=== PATIENT | male | born 1965 | race Caucasian/White ===

== ENCOUNTER 2017-08-14 13:33 | Observation (INO) | payer BC ==
[2017-08-14] VITALS (7 sets, daily range): BP systolic 97–146; BP diastolic 56–87; PULSE 50–60; RESP 15–20; TEMP 97.4–98.5; O2SAT 96–99
[~2017-08-14] VITALS: Ht 172.7 cm; Wt 65.0 kg
[~2017-08-14 13:33] MED LIST: ASPI81 PO; ATOR80TA41 PO; DEXTLIQ PO; LISI5 PO; METO25 PO; TICA90 PO; TRAM50TA PO; VITA-83 PO; ZITH250T PO
--- NOTE | 2017-08-14 13:44 | PD ---
Physical Exam Time Seen by Provider: 13:43 Narrative 51-year-old male presents to emergency room complaining of intermittent left- sided chest pain that started today. Describes as a pressure. Denies shortness of breath. History of stent placement one year ago. Patient seen in triage. Vital signs reviewed. Patient awaiting bed placement. Data Data Last Documented VS Vital Signs Date Time Temp Pulse Resp B/P (MAP) Pulse Ox O2 Delivery O2 Flow Rate FiO2 08/14/17 13:35 98.5 60 15 138/87 (104) 97 MDM Supervised Visit with LING: Margi Wild Aug 14, 2017 13:44
[2017-08-14] MEDS ORDERED: SODIUM CHLORIDE 0.9% FLUSH 10 ML FLUSH IVF PRN (13:45)
--- NOTE | 2017-08-14 14:29 | PD ---
HPI Chief Complaint: Chest Pain Time Seen by Provider: 14:10 Travel History International Travel<30 days: No Contact w/Intl Traveler<30days: No Traveled to known affect area: No History of Present Illness HPI 51-year-old male with PMH of CAD, status post stenting by Dr. Brasher in 2014 presents to the ED for evaluation of 3 day history of intermittent left sided and epigastric chest pain. Described as pressure. Patient states that the first episode woke him from sleep a few nights ago. He states that he had a few episodes while he was surfing today which caused him to come out of the water, have his vitals taken by a infrastructure security architect. He states they were normal at that time. States that he went home and was talking to his and had a similar episode that prompted him to seek treatment in the ED. He states that the episodes last a few minutes before resolving spontaneously. He denies associated palpitations, shortness of breath, nausea, vomiting, diaphoresis. He takes an aspirin daily. He denies cigarette smoking. Occasional drinker. Endorses smoking marijuana. He is followed by Dr. Alfredo Serrano, cardiology. [facility] Past Medical History Heart Rhythm Problems: No Cancer: No Cardiac Catheterization: Yes (SEP 2015) Cardiovascular Problems: Yes (HEART CATH IN 2014) High Cholesterol: Yes (PT STATES HE THINK HE DOES CURRENTLY ) Chest Pain: Yes Congestive Heart Failure: No Coronary Artery Disease: Yes Diabetes: No Diminished Hearing: No Endocrine: No Genitourinary: No Immune Disorder: No Musculoskeletal: No Neurologic: No Psychiatric: No Reproductive: No Respiratory: No Immunizations Current: Yes Tetanus Vaccination: < 5 Years Influenza Vaccination: No Past Surgical History Appendectomy: Yes ( A CHILD) Coronary Artery Bypass Graft: No Coronary Stent: Yes Other Surgery: No Social History Alcohol Use: No Tobacco Use: No Substance [facility]: Yes [facility] Allergies-Medications (Allergen,Severity, Reaction): Coded Allergies: No Known Allergies (Verified , 08/14/17) Reported Meds & Prescriptions Reported Meds & Active Scripts Active Reported Aspirin EC (Aspirin) 81 Mg Tabdr 81 Mg PO DAILY Atorvastatin (Atorvastatin Calcium) 80 Mg Tab 80 Mg PO HS Metoprolol Tartrate 25 Mg Tab 25 Mg PO BID Review of Systems Except as stated in HPI: all other systems reviewed are Neg Physical Exam Narrative GENERAL: Well-nourished, well-developed thin white male in no acute distress. SKIN: Focused skin assessment warm/dry. HEAD: Normocephalic. EYES: No scleral icterus. No injection or drainage. NECK: Supple, trachea midline. No JVD or lymphadenopathy. CARDIOVASCULAR: Regular rate and rhythm without murmurs, gallops, or rubs. No tenderness to palpation over the precordium. RESPIRATORY: Breath sounds clear and equal bilaterally. No accessory muscle use. GASTROINTESTINAL: Abdomen soft, non-tender, nondistended. MUSCULOSKELETAL: No cyanosis, or edema. BACK: Nontender without obvious deformity. No CVA tenderness. Data Data Last Documented VS Vital Signs Date Time Temp Pulse Resp B/P (MAP) Pulse Ox O2 Delivery O2 Flow Rate FiO2 08/14/17 15:25 50 15 146/83 (104) 98 Room Air 08/14/17 13:35 98.5 Orders Orders Electrocardiogram (08/14/17 13:44) Basic Metabolic Panel (Bmp) (08/14/17 13:44) Ckmb (Isoenzyme) Profile (08/14/17 13:44) Complete Blood Count With Diff (08/14/17 13:44) Magnesium (Mg) (08/14/17 13:44) Prothrombin Time / Inr (Pt) (08/14/17 13:44) Act Partial Throm Time (Ptt) (08/14/17 13:44) Troponin I (08/14/17 13:44) Ecg Monitoring (08/14/17 13:44) Iv Access Insert/Monitor (08/14/17 13:44) Oximetry (08/14/17 13:44) Oxygen Administration (08/14/17 13:44) Sodium Chloride 0.9% Flush (Ns Flush) (08/14/17 13:45) Chest, Pa & Lat (08/14/17 13:44) Nitroglycerin 2% Oint (Nitroglycerin 2% (08/14/17 15:00) CKMB (08/14/17 14:40) CKMB% (08/14/17 14:40) Admit Order (Ed Use Only) (08/14/17 16:16) Labs Laboratory Tests Test 08/14/17 14:40 White Blood Count 7.4 TH/MM3 Red Blood Count 5.20 MIL/MM3 Hemoglobin 15.6 GM/DL Hematocrit 45.2 % Mean Corpuscular Volume 86.8 FL Mean Corpuscular Hemoglobin 30.0 PG Mean Corpuscular Hemoglobin Concent 34.6 % Red Cell Distribution Width 13.2 % Platelet Count 223 TH/MM3 Mean Platelet Volume 8.4 FL Neutrophils (%) (Auto) 65.6 % Lymphocytes (%) (Auto) 24.6 % Monocytes (%) (Auto) 7.2 % Eosinophils (%) (Auto) 1.6 % Basophils (%) (Auto) 1.0 % Neutrophils # (Auto) 4.9 TH/MM3 Lymphocytes # (Auto) 1.8 TH/MM3 Monocytes # (Auto) 0.5 TH/MM3 Eosinophils # (Auto) 0.1 TH/MM3 Basophils # (Auto) 0.1 TH/MM3 CBC Comment DIFF FINAL Differential Comment Prothrombin Time 10.7 SEC Prothromb Time International Ratio 1.0 RATIO Activated Partial Thromboplast Time 25.2 SEC Blood Urea Nitrogen 9 MG/DL Creatinine 0.89 MG/DL Random Glucose 82 MG/DL Calcium Level 9.5 MG/DL Magnesium Level 2.1 MG/DL Sodium Level 138 MEQ/L Potassium Level 4.1 MEQ/L Chloride Level 102 MEQ/L Carbon Dioxide Level 28.3 MEQ/L Anion Gap 8 MEQ/L Estimat Glomerular Filtration Rate 90 ML/MIN Total Creatine Kinase 155 U/L Creatine Kinase MB 1.9 NG/ML Troponin I LESS THAN 0.02 NG/ML MDM Medical Decision Making Medical Screen Exam Complete: Yes Emergency Medical Condition: Yes Differential Diagnosis Chest pain versus angina versus GERD versus ACS versus other Narrative Course 51-year-old male with PMH of CAD, status post stenting by Dr. Brasher in 2014 presents to the ED for evaluation of 3 day history of intermittent left sided and epigastric chest pain. Described as pressure. Patient states that the first episode woke him from sleep a few nights ago, multiple episodes today that prompted him to seek treatment in the ED. He states that the episodes last a few minutes before resolving spontaneously. He denies associated palpitations, shortness of breath, nausea, vomiting, diaphoresis. He takes an aspirin daily. He denies cigarette smoking. Occasional drinker. Endorses smoking marijuana. He is followed by Dr. Alfredo Serrano, cardiology. Vitals reviewed. Heart rate in the 50s, otherwise unremarkable. Physical exam is reassuring. Patient was administered 1 inch strip of Nitro paste. EKG rate 52, sinus bradycardia. MN interval 167, QRS 102, QTc 388 ms. Normal axis. No ST changes. Reviewed by Dr. Hunter CXR normal per radiology read. Cardiac enzymes negative 1. No concerning abnormalities a CBC, CMP, coags. Plan to admit his [employer]EL[employer]. On recheck the patient endorses several fleeting episodes of the same pain. He was administered by mouth ranitidine. I spoke with Dr. Serrano who is in agreement to admission to the [facility]. I discussed with the patient to his agreeable to the plan. Please see [facility] note for disposition. Roselyn Lazo Aug 14, 2017 14:29
--- NOTE | 2017-08-14 14:41 | RADRPT ---
EXAM DATE/TIME: 08/14/2017 14:08 [facility] COMPARISON: CHEST PA & LAT, November 24, 2015, 11:41. INDICATIONS : Chest pain x 3 days. MEDICAL HISTORY : Cardiovascular disease. SURGICAL HISTORY : Coronary artery stent. ENCOUNTER: Initial ACUITY: 1 day PAIN SCORE: 2/10 LOCATION: Bilateral chest FINDINGS: PA and lateral views of the chest demonstrate the lungs to be symmetrically aerated without evidence of mass, infiltrate or effusion. The cardiomediastinal contours are unremarkable. Osseous structure s are intact. CONCLUSION: Normal examination. Luke López Jr., MD on August 14, 2017 at 14:39 Board Certified Radiologist. This report was verified electronically.
[2017-08-14] MEDS ORDERED: NITROGLYCERIN 2% OINT 1 GM PACKET TOP ONE (15:00)
[2017-08-14 15:15] LABS: AUTOMATED NEUTROPHIL # 4.9 TH/MM3 (1.8-7.7); BASOPHIL # 0.1 TH/MM3 (0-0.2); EOSINOPHIL # 0.1 TH/MM3 (0-0.4); EOSINOPHIL % 1.6 % (0.0-4.0); HEMATOCRIT 45.2 % (39.0-51.0); HEMO FLAGS DIFF FINAL; LYMPH % 24.6 % (9.0-44.0); LYMPHOCYTE # 1.8 TH/MM3 (1.0-4.8); MEAN CELL VOLUME 86.8 FL (80.0-100.0); MEAN CORPUSCULAR HGB CONC 34.6 % (32.0-36.0); MONO % 7.2 % (0.0-8.0); NEUT % 65.6 % (16.0-70.0); PLATELET COUNT 223 TH/MM3 (150-450); RED CELL DISTRIBUTION WIDTH 13.2 % (11.6-17.2); WHITE BLOOD COUNT 7.4 TH/MM3 (4.0-11.0)
[2017-08-14 15:25] LABS: APTT (PATIENT) 25.2 SEC (24.3-30.1); PROTHROMBIN TIME - PATIENT 10.7 SEC (9.8-11.6)
[2017-08-14] MEDS ORDERED: ATOR1TAB18 PO (15:35)
[2017-08-14] MEDS ORDERED: ASPI81TA11 PO (15:35)
[2017-08-14] MEDS ORDERED: METO25TA3 PO (15:35)
[2017-08-14 15:37] LABS: ANION GAP 8 MEQ/L (5-15); BICARBONATE 28.3 MEQ/L (21.0-32.0); BLOOD UREA NITROGEN 9 MG/DL (7-18); CHLORIDE 102 MEQ/L (98-107); GLOMERULAR FILTRATION RATE 90 ML/MIN (>89); MAGNESIUM 2.1 MG/DL (1.5-2.5); POTASSIUM 4.1 MEQ/L (3.5-5.1); SODIUM (NA) 138 MEQ/L (136-145)
[2017-08-14 15:41] LABS: CREATINE KINASE 155 U/L (39-308)
[2017-08-14 15:53] LABS: CKMB 1.9 NG/ML (0.5-3.6)
[2017-08-14] MEDS ORDERED: FAMOTIDINE 20 MG TAB PO ONE (16:30)
[2017-08-14] MEDS ORDERED: SODIUM CHLORIDE 0.9% FLUSH 5 ML FLUSH IVF PRN (17:00)
[2017-08-14] MEDS ORDERED: ONDANSETRON HCL 4 MG/2 ML VIAL IV PUSH PRN (17:00)
[2017-08-14] MEDS ORDERED: ACETAMINOPHEN/HYDROcodone 325 MG/7.5 MG TAB PO PRN (17:00)
[2017-08-14] MEDS ORDERED: ALPRAZolam 0.25 MG TAB PO PRN (17:00)
[2017-08-14] MEDS ORDERED: ALUMINUM/MAGNESIUM/SIMETH 30 ML CUP PO PRN (17:00)
--- NOTE | 2017-08-14 17:12 | HHI.HP ---
[facility] Primary Care Physician Dilma Delgadillo MD Chief Complaint Chest pain History of Present Illness This is a 51-year-old male with history of CAD stenting of the RCA September 2013 that presents to ED with a complaint of chest discomfort that essentially is better constantly for 3 days. The first was a burning discomfort in the epigastric region. However today while he was surfing the discomfort changed to a pressure in the center of his chest. He still has a little bit of the burning in the epigastric region but he seems like that burning radiated up toward and is now pressure. States it feels like a big gas bubble. He was not short of breath nauseous or diaphoretic. 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 He states this is not at all similar to the symptoms he had when he needed a stent in 2014. He states that at that point he was having chest pain with exertion, was very fatigued even at rest, and was extremely short of breath even with light activity. He has none of these symptoms at this time. He has not had a stress test since his stent. He was following with Dr. Alfredo Serrano but states he has not seen him in about a year. Voices compliance with his medications. He did not try any over-the- counter medications over the last 3 days to relieve the symptoms. Review of Systems General: Patient denies fevers, chills recent, and recent travel HEENT: Patient denies headache, sore throat, difficulty swallowing. Cardiovascular: Has the chest discomfort as mentioned above. Denies sensation of heart beating rapidly or irregularly. No syncope. Denies diaphoresis. Respiratory: Denies shortness of breath or inspirational chest discomfort. Denies coughing wheezing or hemoptysis. GI: Complains of epigastric discomfort as a burning pain. It radiated upward into his chest as a pressure setting of felt as if a gas bubble was present. Patient denies nausea, vomiting, diarrhea, bloody stools. Musculoskeletal: Patient denies joint pain or edema. Denies calf pain or edema. Neurovascular: Patient denies numbness, tingling, weakness in extremities. Denies headache. Endocrine: Denies polyuria and polydipsia. Hematologic: Denies easy bruising. Skin: Denies rash or itching. Past Family Social History Allergies: Coded Allergies: No Known Allergies (Verified , 10/11/17) Past Medical History CAD with stent of the RCA, also 90% distal LAD stenosis but vessels very small in caliber. Hyperlipidemia. Denies hypertension, diabetes. Past Surgical History Cardiac catheterization with stenting of RCA in 2015. Reported Medications Reported Meds & Active Scripts Active Reported Aspirin EC (Aspirin) 81 Mg Tabdr 81 Mg PO DAILY Atorvastatin (Atorvastatin Calcium) 80 Mg Tab 80 Mg PO HS Metoprolol Tartrate 25 Mg Tab 25 Mg PO BID Active Ordered Medications Current Medications Medications (Trade) Dose Ordered Sig/Praveen Route Start Time Stop Time Status Last Admin (NS Flush) 2 ml UNSCH PRN IVF 08/14/17 13:45 (NS Flush) 2 ml UNSCH PRN IVF 08/14/17 17:00 UNV (NS Flush) 2 ml BID IVF 08/14/17 21:00 UNV (Tylenol) 500 mg Q4H PRN PO 08/14/17 17:00 UNV ([place] 7.5-325 Mg) 1 tab Q4H PRN PO 08/14/17 17:00 UNV (Zofran Inj) 4 mg Q6H PRN IV PUSH 08/14/17 17:00 UNV (Aspirin) 325 mg DAILY PO 08/15/17 09:00 UNV (Xanax) 0.25 mg Q8H PRN PO 08/14/17 17:00 UNV (Mag-Al Plus Susp Liq) 30 ml Q6H PRN PO 08/14/17 17:00 UNV (Protonix) 40 mg DAILY PO 08/14/17 17:00 UNV Family History Patient is adopted and is unaware of family medical history. Social History Lifetime nonsmoker of tobacco products. Used to smoke marijuana regularly but states that his change. He is only smoke marijuana 3 times in the last year. Denies alcohol. Physical Exam Vital Signs Vital Signs Date Time Temp Pulse Resp B/P (MAP) Pulse Ox O2 Delivery O2 Flow Rate FiO2 08/14/17 15:25 50 15 146/83 (104) 98 Room Air 08/14/17 14:16 20 99 Room Air 08/14/17 13:35 98.5 60 15 138/87 (104) 97 Physical Exam GENERAL: This is a well-nourished, well-developed patient, in no apparent distress. Patient speaks in clear complete sentences. Patient is pleasant. HEENT: Head is atraumatic and normocephalic. Neck is supple without lymphadenopathy and trachea is midline. No JVD or carotid bruits. CARDIOVASCULAR: Regular rate and rhythm without murmurs, gallops, or rubs. RESPIRATORY: Clear to auscultation. Breath sounds equal bilaterally. No wheezes , rales, or rhonchi. Chest wall is nontender. No use of accessory muscles. GASTROINTESTINAL: Abdomen is nontender, nondistended. Abdomen soft. No obvious pulsatile mass or bruit. No CVA tenderness. Strong femoral pulses bilaterally. Normal bowel sounds in all quadrants. MUSCULOSKELETAL: Patient is moving upper and lower extremities freely. No calf tenderness or edema, no Homans sign. Strong pulses in upper and lower extremities. NEUROLOGICAL: Patient is alert and oriented. Cranial nerves 2-12 are grossly intact. No focal deficits and speech is clear. SKIN: No rash and turgor is normal. Laboratory Laboratory Tests Test 08/14/17 14:40 White Blood Count 7.4 Red Blood Count 5.20 Hemoglobin 15.6 Hematocrit 45.2 Mean Corpuscular Volume 86.8 Mean Corpuscular Hemoglobin 30.0 Mean Corpuscular Hemoglobin Concent 34.6 Red Cell Distribution Width 13.2 Platelet Count 223 Mean Platelet Volume 8.4 Neutrophils (%) (Auto) 65.6 Lymphocytes (%) (Auto) 24.6 Monocytes (%) (Auto) 7.2 Eosinophils (%) (Auto) 1.6 Basophils (%) (Auto) 1.0 Neutrophils # (Auto) 4.9 Lymphocytes # (Auto) 1.8 Monocytes # (Auto) 0.5 Eosinophils # (Auto) 0.1 Basophils # (Auto) 0.1 CBC Comment DIFF FINAL Differential Comment Prothrombin Time 10.7 Prothromb Time International Ratio 1.0 Activated Partial Thromboplast Time 25.2 Blood Urea Nitrogen 9 Creatinine 0.89 Random Glucose 82 Calcium Level 9.5 Magnesium Level 2.1 Sodium Level 138 Potassium Level 4.1 Chloride Level 102 Carbon Dioxide Level 28.3 Anion Gap 8 Estimat Glomerular Filtration Rate 90 Total Creatine Kinase 155 Creatine Kinase MB 1.9 Troponin I LESS THAN 0.02 Result Diagram: 08/14/17 1440 08/14/17 1440 Imaging Last 48 hours Impressions Chest X-Ray 08/14/17 1344 Signed Impressions: Service Date/Time: Monday, August 14, 2017 14:08 - CONCLUSION: Normal examination. Luke López Jr., MD Course Initial EKG is sinus bradycardia rate [address] segment depressions or elevations. Caprini VTE Risk Assessment Caprini VTE Risk Assessment: No/Low Risk (score <= 1) Caprini Risk Assessment Model Point Value = 1 Point Value = 2 Point Value = 3 Point Value = 5 Age 41-60 Minor surgery BMI > 25 kg/m2 Swollen legs Varicose veins or History of unexplained or recurrent spontaneous Oral contraceptives or hormone replacement Sepsis (< 1 month) Serious lung disease, including pneumonia (< 1 month) Abnormal pulmonary function Acute myocardial infarction Congestive heart failure (< 1 month) History of inflammatory bowel disease Medical patient at bed rest Age 61-74 Arthroscopic surgery Major open surgery (> 45 min) Laparoscopic surgery (> 45 min) Malignancy Confined to bed (> 72 hours) Immobilizing plaster cast Central venous access Age >= 75 History of VTE Family history of VTE Factor V Leiden Prothrombin [id number] Lupus anticoagulant Anticardiolipin antibodies Elevated serum homocysteine Heparin-induced thrombocytopenia Other congenital or acquired thrombophilia Stroke (< 1 month) Elective arthroplasty Hip, pelvis, or leg fracture Acute spinal cord injury (< 1 month) Prophylaxis Regimen Total Risk Factor Score Risk Level Prophylaxis Regimen 0-1 Low Early ambulation 2 Moderate Order ONE of the following: *Sequential Compression Device (SCD) *Heparin 5000 units SQ BID 3-4 Higher Order ONE of the following medications: *Heparin 5000 units SQ TID *Enoxaparin/Lovenox 40 mg SQ daily (WT < 150 kg, CrCl > 30 mL/min) *Enoxaparin/Lovenox 30 mg SQ daily (WT < 150 kg, CrCl > 10-29 mL/min) *Enoxaparin/Lovenox 30 mg SQ BID (WT < 150 kg, CrCl > 30 mL/min) AND/OR *Sequential Compression Device (SCD) 5 or more Highest Order ONE of the following medications: *Heparin 5000 units SQ TID (Preferred with Epidurals) *Enoxaparin/Lovenox 40 mg SQ daily (WT < 150 kg, CrCl > 30 mL/min) *Enoxaparin/Lovenox 30 mg SQ daily (WT < 150 kg, CrCl > 10-29 mL/min) *Enoxaparin/Lovenox 30 mg SQ BID (WT < 150 kg, CrCl > 30 mL/min) AND *Sequential Compression Device (SCD) Assessment and Plan Assessment and Plan * Chest pain: Patient has history of CAD. He will continue to have serial cardiac enzymes and EKGs for ruling out purposes and will be seen by Dr. Breaux cardiology in the chest pain center in the morning. I discussed this patient with his facilities maintenance worker Dr. Alfredo Serrano. He is requested nuclear stress testing if he rules out and he will be glad to follow him in outpatient setting afterwards. He has requested to be notified if the stress test is abnormal. We'll also give Mylanta for possible GERD symptoms and start Protonix while in the chest pain center. * CAD: We'll reassess with stress testing. He'll follow with his facilities maintenance worker Dr. Alfredo Serrano after discharge or tenderness hospitalization his stress test is ischemic. * Hyperlipidemia: Continue current medication. Patient is stable at this time. He is agreeable to this plan. rBain Weiss Aug 14, 2017 17:12
[2017-08-14 18:02] LABS: CREATINE KINASE 143 U/L (39-308)
[2017-08-14 18:14] LABS: CKMB 1.5 NG/ML (0.5-3.6)
[2017-08-14] MEDS: SODIUM CHLORIDE 0.9% FLUSH 5 ML FLUSH IVF SCH (21:00)
[2017-08-14] MEDS ORDERED: ATORVASTATIN 80 MG TAB PO SCH (21:00)
[2017-08-14] MEDS: METOPROLOL TARTRATE 25 MG TAB PO SCH (21:01)
[2017-08-14] MEDS: PANTOPRAZOLE SOD 40 MG DELAYED RELEASE TAB PO SCH (21:01)
[2017-08-14] MEDS: ACETAMINOPHEN 500 MG CPLT PO PRN (21:01)
[2017-08-14 21:49] LABS: CREATINE KINASE 135 U/L (39-308)
[2017-08-14 22:01] LABS: CKMB 1.2 NG/ML (0.5-3.6)
[2017-08-15 01:50] VITALS: PULSE 50
[2017-08-15 03:37] VITALS: BP 97/56; PULSE 58; RESP 17; TEMP 98.4; O2SAT 95
--- NOTE | 2017-08-15 07:13 | EKG ---
Date Performed: 08/14/2017 Time Performed: 14:24:58 PTAGE: 51 years EKG: SINUS BRADYCARDIA BORDERLINE ECG Since PREVIOUS TRACING , no significant change noted PREVIOUS TRACIN11/24/2015 14.32 DOCTOR: Doris Breaux Interpretating Date/Time 08/15/2017 07:12:58
--- NOTE | 2017-08-15 07:14 | EKG ---
Date Performed: 08/14/2017 Time Performed: 20:42:04 PTAGE: 51 years EKG: SINUS BRADYCARDIA BORDERLINE ECG Since PREVIOUS TRACING , no significant change noted PREVIOUS TRACIN08/14/2017 17.26 DOCTOR: Doris Breaux Interpretating Date/Time 08/15/2017 07:13:44
--- NOTE | 2017-08-15 07:14 | EKG ---
Date Performed: 08/14/2017 Time Performed: 17:26:09 PTAGE: 51 years EKG: SINUS BRADYCARDIA BORDERLINE ECG Since PREVIOUS TRACING , no significant change noted PREVIOUS TRACIN08/14/2017 14.24 DOCTOR: Doris Breaux Interpretating Date/Time 08/15/2017 07:13:21
--- NOTE | 2017-08-15 08:03 | PD.CARD.PN ---
Subjective Subjective Remarks No complaints over night. Objective Medications Current Medications Medications (Trade) Dose Ordered Sig/Praveen Route Start Time Stop Time Status Last Admin (NS Flush) 2 ml UNSCH PRN IVF 08/14/17 17:00 (NS Flush) 2 ml BID IVF 08/14/17 21:00 (Tylenol) 500 mg Q4H PRN PO 08/14/17 17:00 08/14/17 21:01 ([place] 7.5-325 Mg) 1 tab Q4H PRN PO 08/14/17 17:00 (Zofran Inj) 4 mg Q6H PRN IV PUSH 08/14/17 17:00 (Aspirin) 325 mg DAILY PO 08/15/17 09:00 (Xanax) 0.25 mg Q8H PRN PO 08/14/17 17:00 (Mag-Al Plus Susp Liq) 30 ml Q6H PRN PO 08/14/17 17:00 (Protonix) 40 mg DAILY PO 08/14/17 18:00 08/14/17 21:01 (Lipitor) 80 mg HS PO 08/14/17 21:00 08/14/17 21:00 (Lopressor) 25 mg BID PO 08/14/17 21:00 08/14/17 21:01 Vital Signs / I&O Vital Signs Date Time Temp Pulse Resp B/P (MAP) Pulse Ox O2 Delivery O2 Flow Rate FiO2 08/15/17 03:37 98.4 58 17 97/56 (70) 95 08/15/17 01:50 50 08/14/17 23:39 97.4 55 17 97/56 (70) 96 08/14/17 22:08 50 08/14/17 20:33 98.0 54 17 113/69 (84) 98 08/14/17 19:15 08/14/17 18:44 97 08/14/17 15:25 50 15 146/83 (104) 98 Room Air 08/14/17 14:16 20 99 Room Air 08/14/17 13:35 98.5 60 15 138/87 (104) 97 Physical Exam GENERAL: Alert WN, WD, NAD, pleasant HEAD: NC, AT CV: RRR, without murmur, rub, gallop, no JVD, S1-S2 no S3-S4. RESP: Clear lungs throughout bilateral, no crackles, wheeze, rhonchi, symmetrical chest rise, nonlabored, able to speak in full sentences EXT: Pulses +24, no dependent edema MS: Normal tone 4 extremities, nontender, no obvious deformities, full range of motion NEURO: CN II through CN XII grossly intact, motor strength 5/5 PSYCH: A+O 3, pleasant affect, appropriate speech, appropriate mood and affect , insight and judgment SKIN: Normal turgor, normal texture Laboratory Laboratory Tests Test 08/14/17 14:40 08/14/17 17:23 08/14/17 20:55 White Blood Count 7.4 TH/MM3 Red Blood Count 5.20 MIL/MM3 Hemoglobin 15.6 GM/DL Hematocrit 45.2 % Mean Corpuscular Volume 86.8 FL Mean Corpuscular Hemoglobin 30.0 PG Mean Corpuscular Hemoglobin Concent 34.6 % Red Cell Distribution Width 13.2 % Platelet Count 223 TH/MM3 Mean Platelet Volume 8.4 FL Neutrophils (%) (Auto) 65.6 % Lymphocytes (%) (Auto) 24.6 % Monocytes (%) (Auto) 7.2 % Eosinophils (%) (Auto) 1.6 % Basophils (%) (Auto) 1.0 % Neutrophils # (Auto) 4.9 TH/MM3 Lymphocytes # (Auto) 1.8 TH/MM3 Monocytes # (Auto) 0.5 TH/MM3 Eosinophils # (Auto) 0.1 TH/MM3 Basophils # (Auto) 0.1 TH/MM3 CBC Comment DIFF FINAL Differential Comment Prothrombin Time 10.7 SEC Prothromb Time International Ratio 1.0 RATIO Activated Partial Thromboplast Time 25.2 SEC Blood Urea Nitrogen 9 MG/DL Creatinine 0.89 MG/DL Random Glucose 82 MG/DL Calcium Level 9.5 MG/DL Magnesium Level 2.1 MG/DL Sodium Level 138 MEQ/L Potassium Level 4.1 MEQ/L Chloride Level 102 MEQ/L Carbon Dioxide Level 28.3 MEQ/L Anion Gap 8 MEQ/L Estimat Glomerular Filtration Rate 90 ML/MIN Total Creatine Kinase 155 U/L 143 U/L 135 U/L Creatine Kinase MB 1.9 NG/ML 1.5 NG/ML 1.2 NG/ML Troponin I LESS THAN 0.02 NG/ML LESS THAN 0.02 NG/ML LESS THAN 0.02 NG/ML Imaging Last 24 hours Impressions Chest X-Ray 08/14/17 1344 Signed Impressions: Service Date/Time: Monday, August 14, 2017 14:08 - CONCLUSION: Normal examination. Luke López Jr., MD Assessment and Plan Assessment and Plan #1 Chest pain-Seen and evaluated by Dr. Breaux. Proceed with nuclear treadmill testing this am as previously discussed with Dr. Serrano. If unremarkable, will discharge with follow up with Dr. Serrano. If abnormal, will notify Dr. Serrano of findings. Lisa Taylor Aug 15, 2017 08:03
[2017-08-15 08:16] VITALS: BP 117/64; PULSE 54; RESP 18; TEMP 98; O2SAT 99
[2017-08-15] MEDS ORDERED: ASPIRIN 325 MG TAB PO SCH (09:00)
[2017-08-15] MEDS: SODIUM CHLORIDE 0.9% FLUSH 5 ML FLUSH IVF SCH (09:00)
[2017-08-15] MEDS: METOPROLOL TARTRATE 25 MG TAB PO SCH ×2 (09:00→09:17)
[2017-08-15] MEDS: PANTOPRAZOLE SOD 40 MG DELAYED RELEASE TAB PO SCH (09:17)
[2017-08-15] MEDS: ACETAMINOPHEN 500 MG CPLT PO PRN (09:22)
--- NOTE | 2017-08-15 13:20 | RADRPT ---
EXAM DATE/TIME: 08/15/2017 09:53 [facility] COMPARISON: No previous studies available for comparison. INDICATIONS : Chest Pain. Angina DOSE: 27.2 mCi Tc99m Myoview at stress 8.5 mCi Tc99m Myoview at rest REST HEART RATE: 60 BPM TARGET HEART RATE: 143 BPM MAX HEART RATE: 145 BPM REST BLOOD PRESSURE: 116/74 mmHg MAX BLOOD PRESSURE: 124/75 mmHg EJECTION FRACTION: 62% MEDICAL HISTORY : Hypercholesterolemia. SURGICAL HISTORY : Coronary artery stent. ENCOUNTER: Initial ACUITY: 1 day PAIN SCALE: 2/10 LOCATION: Left chest intermittent TECHNIQUE: The patient underwent upright treadmill exercise in the chest pain center. Continuous ECG tracing wa s monitored during stress. Gated SPECT imaging was performed after stress, and conventional SPECT im aging was performed at rest. The examination was performed on a SPECT/CT scanner, both attenuation-c orrected and non-corrected datasets were reviewed. FINDINGS: DISTRIBUTION: The maximum perfused segment at stress is in the anterolateral wall. PERFUSION STUDY: The pattern of perfusion at stress is within normal limits. GATED STUDY: There is intact wall motion and thickening without hypokinetic or dyskinetic segments. CONCLUSION: 1. No reversible perfusion defect to indicate crescent is myocardial ischemia identified. RISK CATEGORY: Low (<1% Annual Mortality Rate) Pal Posada MD on August 15, 2017 at 13:18 Board Certified Radiologist. This report was verified electronically.
[2017-08-15] MEDS ORDERED: RANI150C PO (13:26)
--- NOTE | 2017-08-15 13:27 | HHI.DCPOC ---
Discharge Care Plan Diagnosis: (1) Atypical chest pain (2) GERD (gastroesophageal reflux disease) (3) Hx of coronary artery disease Goals to Promote Your Health * To prevent worsening of your condition and complications * To maintain your health at the optimal level Directions to Meet Your Goals Take your medications as prescribed Follow your dietary instruction Follow activity as directed Keep your appointments as scheduled Take your immunizations and boosters as scheduled If your symptoms worsen call your PCP, if no PCP go to Urgent Care Center or Emergency Room Smoking is Dangerous to Your Health. Avoid second hand smoke Call the 24-hour hour crisis hotline for domestic abuse at Lisa Taylor Aug 15, 2017 13:27
--- NOTE | 2017-08-15 13:31 | HHI.DS ---
Discharge Summary Admission Date Aug 14, 2017 at 16:17 Discharge Date: Aug 15, 2017 Admitting Diagnosis chest pain Brief History 51-year-old male with history of coronary artery disease including times one cardiac stent presents to emergency room for 3 days chest discomfort. The chest pain center ruled out with 3 sets of EKGs and cardiac enzymes. Completed nuclear stress test which did not suggest ischemia. CBC/BMP: 08/14/17 1440 08/14/17 1440 Significant Findings Laboratory Tests Test 08/14/17 14:40 08/14/17 17:23 08/14/17 20:55 Troponin I LESS THAN 0.02 NG/ML LESS THAN 0.02 NG/ML LESS THAN 0.02 NG/ML Imaging Last Impressions Myocardial Perfusion Scan Nuc Med 08/15/17 0000 Signed Impressions: Service Date/Time: August 09:53 - CONCLUSION: 1. No reversible perfusion defect to indicate crescent is myocardial ischemia identified. RISK CATEGORY: Low (<1%% Annual Mortality Rate) Pal Posada MD Chest X-Ray 08/14/17 1344 Signed Impressions: Service Date/Time: Monday, August 14, 2017 14:08 - CONCLUSION: Normal examination. Luke López Jr., MD PE at Discharge GENERAL: Alert WN, WD, NAD, pleasant HEAD: NC, AT CV: RRR, without murmur, rub, gallop, no JVD, S1-S2 no S3-S4. RESP: Clear lungs throughout bilateral, no crackles, wheeze, rhonchi, symmetrical chest rise, nonlabored, able to speak in full sentences EXT: Pulses +24, no dependent edema MS: Normal tone 4 extremities, nontender, no obvious deformities, full range of motion NEURO: CN II through CN XII grossly intact, motor strength 5/5, gait WNL PSYCH: A+O 3, pleasant affect, appropriate speech, appropriate mood and affect , insight and judgment SKIN: Normal turgor, normal texture Pt Condition on Discharge: Good Discharge Disposition: Discharge Home Discharge Instructions DIET: Follow Instructions for: Heart Healthy Diet Activities you can perform: Regular-No Restrictions Lisa Taylor Aug 15, 2017 13:31
--- NOTE | 2017-08-15 18:26 | TR ---
Date Performed: 08/15/2017 Time Performed: 11:40:57 DOCTOR: Doris Breaux DRUG LIST: CLINICAL HISTORY: CHEST PAIN REASON FOR TEST: Chest pain REASON FOR ENDING: OBSERVATION: CONCLUSION: Emmett protocol completed. Stopped sec to exceeding taget heart rate. Maximum DR=653 Target HR Achieved=86.0% Maximum JZ=385/82 Total Exercise Time=9:56. No reprod chest pain. No ectopy. Great exercise tolerance. Normal bp response. No st segment changes to sugg ischemia. Recovery quick and remarkable. Nuclear images pending. COMMENTS:
== END 2017-08-15 15:06 | disposition home or self-care (01) ==
LOC: NEPC 13:33 → NEDA 16:17 → NEPFCDU 19:13
PROVIDERS: ADMIT Internal Medicine Cardiovascular Disease; ATTEND Internal Medicine Cardiovascular Disease
DX: R07.89 Other chest pain (principal); I25.10 Atherosclerotic heart disease of native coronary artery without angina pectoris; R00.1 Bradycardia, unspecified; R94.31 Abnormal electrocardiogram [ECG] [EKG]; K21.9 Gastro-esophageal reflux disease without esophagitis; E78.5 Hyperlipidemia, unspecified; Z95.5 Presence of coronary angioplasty implant and graft; Z79.82 Long term (current) use of aspirin
CPT/HCPCS: 71020; 78452; 80048; 82550; 82552; 83735; 84484; 85025; 85610; 85730; 93005; 93017; 99285; A9502; G0378